=== PATIENT | male | born 1995 | race Caucasian/White ===

== ENCOUNTER 2017-03-29 11:45 | Inpatient (IN) | payer BC ==
[~2017-03-29] VITALS: Ht 182.8 cm; Wt 56.9 kg
[2017-03-29] VITALS (8 sets, daily range): BP systolic 113–139; BP diastolic 63–83
--- NOTE | ~2017-03-29 | CON ---
[place], [place] REPORT OF CONSULTATION [id number] UNIT #: [id number] ROOM: [facility] DOCTOR: GUANAKO CONNORS MD BIRTHDATE: [birth year] DOS: GASTROENDOSCOPIC REPORT HISTORY OF PRESENT ILLNESS: A 89-year-old patient who presented with chief complaint of exhaustion. The patient was directed to come to the Emergency Room for blood work. He was found to have H and H of 7 and 25, microcytic indices blood in the stool. The patient is known and recently diagnosed with ulcerative colitis. He was a couple of months on sulfasalazine 500 mg 2 tablets b.i.d. and folic acid. He was responding to the medication, apparently he had breakthrough and non-responsiveness and his colitis was re-assessed and active colitis was noticed. The patient was started recently on Lialda over the past 10 days. He has been responding and his bowel movement has reduced to 3 to 4 per day. His cramp has improved. However during this course of admission, he was given a unit of packed cell admitted and with a second unit, it was thought that he has allergic reaction to the second unit; therefore, the second unit was not transfused. H and H after the first unit therefore became 7.3 and 25, nearly the same as when he was admitted. He had a panel of blood work done including lactic acid 0.8. CT scan of the abdomen and pelvis shows some nodularity of the lower lungs and also the colitis pattern after ulcerative colitis with inflammatory response. His comprehensive metabolic panel and GFR greater than 60. Electrolytes balanced. Calcium is 8.1 expected, most likely secondary to low albumin. Liver function tests otherwise within normal limit as this CBC this morning, white blood cell is 10 and his neutrophils are 85.6. PAST MEDICAL HISTORY: Recently diagnosed ulcerative colitis. 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 SOCIAL HISTORY: Nonsmoker, nonalcohol consumer. FAMILY HISTORY: An uncle, the brother of his mother, with Crohn's disease for past 26 years. ALLERGIES: ROBITUSSIN. HOME MEDICATIONS: He has been tried on ferrous sulfate and folic acid, which helped him for 2 months in his ulcerative colitis, subsequently 10 days ago, switched to Lialda 1.2 g b.i.d. Multivitamins and ferrous sulfate. REVIEW OF SYSTEMS: HEENT: Denies double vision, blurred vision. RESPIRATORY: Denies acute shortness of breath, no cough. CARDIOVASCULAR: Denies chest pain. DIGESTIVE SYSTEM: Ulcerative colitis, diarrhea, cramps. PHYSICAL EXAMINATION: VITAL SIGNS: Stable. HEENT: Head normocephalic, nontraumatic. Mouth and buccal mucosa benign. [place], [place] REPORT OF CONSULTATION NAME: SUNNY HARTLEY UNIT #: [id number] ROOM: [facility] DOCTOR: WAYLON ARGUETA,GUANAKO BIRTHDATE: [birth year] NECK: Supple, no thyromegaly, no cervical lymphadenopathy. CHEST: Symmetric anatomy, equal expansion. No wheeze. ABDOMEN: Soft. No hepato-organomegaly. Bowel sounds present. Nonspecific tender. EXTREMITIES: No cyanosis. No pedal edema. NEUROLOGIC: Alert, oriented to time, place and person. IMPRESSION: Severe anemia, exhaustion secondary to above, history of ulcerative colitis with some improvement on Lialda responds. Recently found CT scan findings of suspected lower lung nodules which is going to be addressed with CTA of the chest. Antibiotic, Zosyn has been on board, which is going to be supplemented with Flagyl 250 mg p.o. q.i.d. His iron supplementation is going to continue. 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 He has been on a trial of Medrol dose, but apparently I will continue with two doses of Medrol while he is inpatient to see if I can enhance symptomatic improvement of some of his colitis reaction with Medrol 100 mg b.i.d. while in hospital and suspected sepsis and protein malnutrition are being addressed. Hydration through IV fluid support is going to be given. Transfusion as necessary today on his second unit. Transfusion tomorrow H and H, I trust that we may need another unit as we go along and clinical reassessment. GUANAKO CONNORS MD CM:CONSTR:REPORT OF CONSULTATION [id number] 03/31/17 4600 interface
[~2017-03-29 11:45] MED LIST: AMOXIL250 M1 PO; BENADRYL12.5 MG/5 PO
[2017-03-29 12:28] LABS: BASO % 0.3 % (0.0-1.0); EOS # 0.8 10*3/uL (0.0-0.4); EOS % 7.1 % (1.0-4.0); HEMATOCRIT 25.9 % (42.0-52.0); HEMOGLOBIN 7.3 g/dl (14.0-18.0); LYMPH # 1.3 10*3/uL (1.3-4.4); MEAN CELL VOLUME 70.6 fl (80.0-94.0); MEAN CORPUSCULAR HGB 19.9 pg (27.0-31.0); MEAN CORPUSCULAR HGB CONC 28.2 g/dl (33.0-37.0); MEAN PLATELET VOLUME 8.5 fl (9.6-12.3); MONO # 1.5 10*3/uL (0.1-1.0); MONO % 12.4 % (3.0-9.0); NEUT # 8.2 10*3/uL (2.3-7.9); NEUT % 68.7 % (47.0-73.0); PLATELET COUNT AUTOMATED 498 10*3/uL (130-400); RED BLOOD COUNT 3.67 10*6/uL (4.50-5.90); RED CELL DISTRI WIDTH 25.2 % (0-14.5); WHITE BLOOD COUNT 11.9 10*3/uL (4.8-10.8)
[2017-03-29] MEDS ORDERED: NATURE'S BLEND F1 MG PO (16:05)
[2017-03-29] MEDS ORDERED: LIALDA1.2 GM PO (16:13)
[2017-03-29] MEDS ORDERED: FERROUS SULFAT325 MG PO (16:13)
[2017-03-29] MEDS ORDERED: CENTRUM MEN'S1 EACH PO (16:16)
--- NOTE | 2017-03-29 20:00 | NUR ---
2ND UNIT OF BLOOD STARTED TEMP WENT TO 101.1. 2013 TRANSFUSION STOPPED. LAB NOTIFIED, DR. CONNORS NOTIFIED.
--- NOTE | 2017-03-29 21:01 | NUR ---
TINT LAYER IS AWARE AND LAB AND RN COORDINATED PER POLICY ALL THAT NEEDED TO BE DONE FOR REACTION. FAMILY AT BEDSIDE AND COOPERATIVE PATIENT IS TO BE ADMITTED TO DR. GAINES SERVICES.
--- NOTE | 2017-03-29 21:03 | NUR ---
A 21, admitted to , under the services of LU Velázquez DO with a diagnosis of ANEMIA, BLOOD REACTION. Chief complaint is ANEMIA. Patient arrived via ambulatory from [place]. Monitor applied. Initial assessment completed. Vital signs taken and recorded. LU VELÁZQUEZ DO notified of admission to the unit. Orders received. See assessment for past medical history, medications and allergies. Patient and/or family oriented to unit. [facility] visitation policy reviewed. Clothing/patient valuable form completed. ROSE OROPEZA
--- NOTE | 2017-03-29 21:30 | NUR ---
RECHECKED PATIENT TEMP UPON ASSESSMENT PATIENT ORAL TEMP WAS 103.5 CALLED DOCTOR DINA AND MADE HIM AWARE NEW ORDERS WERE RECIEVED.
[2017-03-29 21:50] LABS: URINE BLOOD,POST TRANSFUSION NEGATIVE (NEGATIVE)
[2017-03-29 21:56] LABS: URINE RBC,POST TRANSFUSION 0-2 rbc/hpf (0-2)
--- NOTE | 2017-03-29 22:05 | NUR ---
PATIENT GIVEN TYLENOL FOR FEVER WILL CONT TO MONITOR. PATIENT WAS ALSO GIVEN POPSICLE. STATED THAT HE IS TO AFRAID TO EAT ANYHTING DOESNT WANT TO GO TO THE BATHROOM ANYMORE.
[2017-03-30] VITALS (8 sets, daily range): BP systolic 103–134; BP diastolic 54–90
--- NOTE | 2017-03-30 04:08 | NUR ---
CALLED PATRICE ARROYO ABOUT PATIENTS TEMP OF 101.2 INFORMED HIM THAT I AM ADMINISTERING HIM TYLENOL BUT THAT I WAS JUST KEEPING HIM UPDATED.
[2017-03-30 06:19] LABS: HEMATOCRIT 25.1 % (42.0-52.0); HEMOGLOBIN 7.2 g/dl (14.0-18.0); MEAN CELL VOLUME 71.7 fl (80.0-94.0); MEAN CORPUSCULAR HGB 20.6 pg (27.0-31.0); MEAN CORPUSCULAR HGB CONC 28.7 g/dl (33.0-37.0); MEAN PLATELET VOLUME 8.5 fl (9.6-12.3); PLATELET COUNT AUTOMATED 395 10*3/uL (130-400); RED CELL DISTRI WIDTH 25.5 % (0-14.5); WHITE BLOOD COUNT 11.5 10*3/uL (4.8-10.8)
[2017-03-30 06:49] LABS: ALKALINE PHOSPHATASE 80 U/L (45-117); BUN 5 mg/dl (7-24); CHLORIDE 103 mmol/L (98-107); CREATININE 0.82 mg/dL (0.70-1.30); PHOSPHOROUS 3.3 mg/dL (2.5-4.9); POTASSIUM 3.9 mmol/L (3.5-5.1); SGOT/AST 13 IU/L (3-35); SGPT/ALT 27 U/L (12-78); SODIUM 137 mmol/L (136-145); TOTAL PROTEIN 5.3 gm/dL (6.4-8.2)
[2017-03-30 06:57] LABS: INTERNATIONAL NORM RATIO 1.2 (2.0-3.5)
[2017-03-30 06:58] LABS: MICROCYTOSIS SLIGHT; TOTAL CELLS COUNTED 100 #CELLS
[2017-03-30 06:59] LABS: PLATELET SUFFICIENCY NORMAL (NORMAL); POLYCHROMASIA SLIGHT; TOXIC GRANULATION SLIGHT
--- NOTE | 2017-03-30 07:30 | NUR ---
PT REPORTED TO HAVE A YELLOW LIQUID EMESIS WHEN HAVING BM THIS AM. PT DENIES NAUSEA AT PRESENT TIME. WILL INFORM DOCTOR.
--- NOTE | 2017-03-30 09:15 | NUR ---
DR Randi ARRINGTON UPDATED ON PT'S CONDITION.
--- NOTE | 2017-03-30 09:33 | NUR ---
DR CONNORS UNABLE TO COME TO THE PHONE WHEN I CALLED TO UPDATE HIM ON PT'S CONDITION. MESSAGE LEFT FOR HIM TO CALL.
--- NOTE | 2017-03-30 09:46 | NUR ---
PT TRANSFERED TO [facility]. PT REPORT GIVEN TO RECEIVING NURSE.
--- NOTE | 2017-03-30 09:50 | NUR ---
Stable transfer recieved from 416, on physician order. Ambulatory into room, Father present on arrival. to bathroom for loose bm per pt. VS stable on arrival.
--- NOTE | 2017-03-30 10:31 | NUR ---
Dr. Ko in and spoke w/ pt. and family at length re: plan of care.
--- NOTE | 2017-03-30 12:00 | NUR ---
To radiology for CT. Mother in room.
--- NOTE | 2017-03-30 12:32 | NUR ---
PT HAS RETURNED FROM CT SCAN. PREMEDICATED PER ORDER WITH PO TYLENOL 975, IV BENADRYL 6.25 AND SOLUMEDROL 80MG IV.
--- NOTE | 2017-03-30 12:59 | NUR ---
Temp 100.[address] Lay notified. Verbal order recieved. Do not give blood at this time. Pt. and family aware.
--- NOTE | 2017-03-30 13:33 | NUR ---
Family out to desk state pt. is soaked in sweat. temp check reveals 99.1 .
[2017-03-30 14:08] LABS: BASO % 0.3 % (0.0-1.0); EOS # 0.3 10*3/uL (0.0-0.4); HEMOGLOBIN 7.3 g/dl (14.0-18.0); LYMPH # 0.5 10*3/uL (1.3-4.4); LYMPH % 5.1 % (27.0-41.0); MEAN CELL VOLUME 71.4 fl (80.0-94.0); MEAN CORPUSCULAR HGB 20.9 pg (27.0-31.0); MEAN CORPUSCULAR HGB CONC 29.2 g/dl (33.0-37.0); MEAN PLATELET VOLUME 8.3 fl (9.6-12.3); MONO # 0.6 10*3/uL (0.1-1.0); MONO % 5.6 % (3.0-9.0); NEUT # 8.5 10*3/uL (2.3-7.9); NEUT % 85.6 % (47.0-73.0); PLATELET COUNT AUTOMATED 374 10*3/uL (130-400); RED CELL DISTRI WIDTH 25.6 % (0-14.5)
--- NOTE | 2017-03-30 14:30 | NUR ---
Dr. Lay was updated on temp and CT result. New orders recieved. OK to transfuse PRBC's .
--- NOTE | 2017-03-30 16:30 | NUR ---
Dr. Carreon in and spoke at length with pt. and parents re: plan of care. and CT results including qustionable lung nodules.
--- NOTE | 2017-03-30 17:37 | NUR ---
Transfusion complete , IVF resumed. CTA complete. Lialdal dose given from home med. Liquid BM of dark green.
[2017-03-30 17:56] LABS: BASO % 0.1 % (0.0-1.0); EOS # 0.1 10*3/uL (0.0-0.4); EOS % 0.6 % (1.0-4.0); HEMATOCRIT 30.3 % (42.0-52.0); LYMPH # 0.4 10*3/uL (1.3-4.4); LYMPH % 4.8 % (27.0-41.0); MEAN CORPUSCULAR HGB 22.3 pg (27.0-31.0); MEAN CORPUSCULAR HGB CONC 29.7 g/dl (33.0-37.0); MEAN PLATELET VOLUME 8.4 fl (9.6-12.3); MONO # 0.1 10*3/uL (0.1-1.0); MONO % 1.5 % (3.0-9.0); NEUT # 8.1 10*3/uL (2.3-7.9); NEUT % 92.5 % (47.0-73.0); PLATELET COUNT AUTOMATED 352 10*3/uL (130-400); RED BLOOD COUNT 4.04 10*6/uL (4.50-5.90); RED CELL DISTRI WIDTH 26.1 % (0-14.5); WHITE BLOOD COUNT 8.8 10*3/uL (4.8-10.8)
[2017-03-30 21:59] LABS: HEMATOCRIT 29.9 % (42.0-52.0); MEAN CELL VOLUME 73.8 fl (80.0-94.0); MEAN CORPUSCULAR HGB 22.2 pg (27.0-31.0); MEAN CORPUSCULAR HGB CONC 30.1 g/dl (33.0-37.0); MEAN PLATELET VOLUME 8.6 fl (9.6-12.3); PLATELET COUNT AUTOMATED 356 10*3/uL (130-400); RED BLOOD COUNT 4.05 10*6/uL (4.50-5.90); WHITE BLOOD COUNT 7.6 10*3/uL (4.8-10.8)
[2017-03-30 22:20] LABS: TOTAL CELLS COUNTED 100 #CELLS
[2017-03-30 22:26] LABS: POLYCHROMASIA SLIGHT
[2017-03-30 22:28] LABS: MICROCYTOSIS SLIGHT
[2017-03-30 22:32] LABS: BURR CELLS FEW
[2017-03-30 22:34] LABS: PLATELET SUFFICIENCY NORMAL (NORMAL)
[2017-03-31] VITALS: BP 94/48
[2017-03-31 02:25] LABS: BASO % 0.1 % (0.0-1.0); HEMATOCRIT 28.7 % (42.0-52.0); HEMOGLOBIN 8.6 g/dl (14.0-18.0); LYMPH # 0.5 10*3/uL (1.3-4.4); LYMPH % 7.7 % (27.0-41.0); MEAN CORPUSCULAR HGB 22.2 pg (27.0-31.0); MEAN PLATELET VOLUME 8.6 fl (9.6-12.3); MONO # 0.1 10*3/uL (0.1-1.0); MONO % 1.9 % (3.0-9.0); NEUT # 6.3 10*3/uL (2.3-7.9); NEUT % 89.4 % (47.0-73.0); PLATELET COUNT AUTOMATED 364 10*3/uL (130-400); RED BLOOD COUNT 3.88 10*6/uL (4.50-5.90)
[2017-03-31 04:00] VITALS: BP 115/66
[2017-03-31 06:19] LABS: BASO % 0.1 % (0.0-1.0); HEMATOCRIT 29.7 % (42.0-52.0); HEMOGLOBIN 8.7 g/dl (14.0-18.0); LYMPH # 0.6 10*3/uL (1.3-4.4); LYMPH % 7.5 % (27.0-41.0); MEAN CELL VOLUME 75.8 fl (80.0-94.0); MEAN CORPUSCULAR HGB 22.2 pg (27.0-31.0); MEAN CORPUSCULAR HGB CONC 29.3 g/dl (33.0-37.0); MEAN PLATELET VOLUME 8.8 fl (9.6-12.3); MONO # 0.3 10*3/uL (0.1-1.0); MONO % 3.3 % (3.0-9.0); NEUT # 7.6 10*3/uL (2.3-7.9); NEUT % 88.5 % (47.0-73.0); PLATELET COUNT AUTOMATED 387 10*3/uL (130-400); RED BLOOD COUNT 3.92 10*6/uL (4.50-5.90); RED CELL DISTRI WIDTH 26.3 % (0-14.5); WHITE BLOOD COUNT 8.6 10*3/uL (4.8-10.8)
[2017-03-31 06:47] LABS: ALBUMIN 1.9 gm/dl (3.1-4.5); ALKALINE PHOSPHATASE 85 U/L (45-117); BUN 9 mg/dl (7-24); CHLORIDE 103 mmol/L (98-107); CREATININE 0.76 mg/dL (0.70-1.30); MAGNESIUM 2.2 mg/dL (1.5-2.1); PHOSPHOROUS 4.5 mg/dL (2.5-4.9); POTASSIUM 4.5 mmol/L (3.5-5.1); SGOT/AST 6 IU/L (3-35); SGPT/ALT 22 U/L (12-78); SODIUM 138 mmol/L (136-145); TOTAL PROTEIN 5.7 gm/dL (6.4-8.2)
[2017-03-31 08:00] VITALS: BP 116/68
--- NOTE | 2017-03-31 08:00 | NUR ---
RESTING IN BED. NO VOICED COMPLAINTS. VITALS STABLE. NO EDEMA. TRESSA HOSE INTACT TO BILATERAL LOWER LEGS. PULSE OX 97% ON ROOM AIR
[2017-03-31 11:14] LABS: BASO % 0.1 % (0.0-1.0); HEMATOCRIT 29.4 % (42.0-52.0); HEMOGLOBIN 8.5 g/dl (14.0-18.0); LYMPH # 0.7 10*3/uL (1.3-4.4); LYMPH % 4.9 % (27.0-41.0); MEAN CORPUSCULAR HGB CONC 28.9 g/dl (33.0-37.0); MEAN PLATELET VOLUME 8.9 fl (9.6-12.3); MONO # 0.8 10*3/uL (0.1-1.0); MONO % 5.8 % (3.0-9.0); NEUT # 11.6 10*3/uL (2.3-7.9); NEUT % 88.4 % (47.0-73.0); PLATELET COUNT AUTOMATED 400 10*3/uL (130-400); RED BLOOD COUNT 3.87 10*6/uL (4.50-5.90); RED CELL DISTRI WIDTH 26.3 % (0-14.5); WHITE BLOOD COUNT 13.2 10*3/uL (4.8-10.8)
[2017-03-31 12:00] VITALS: BP 130/73
[2017-03-31] MEDS ORDERED: ZOSYN 3.373.375 GM/5 IV (12:13)
[2017-03-31] MEDS ORDERED: PROTONIX40 M1 IV (12:13)
[2017-03-31] MEDS ORDERED: METRONIDAZOLE250 M1 PO (12:13)
[2017-03-31] MEDS ORDERED: Vitamin D PO (12:13)
--- NOTE | 2017-03-31 14:00 | NUR ---
DISCHARGED TO [facility] VIA [facility].
== END 2017-03-31 14:00 | disposition short-term general hospital (02) | DRG 811 ==
LOC: TRNFUSION 11:45 → LAB 11:45 → 4E 20:35 → ICCU 03-30 09:30
PROVIDERS: Hospitalist; Internal Medicine Gastroenterology; ADMIT Internal Medicine
DX: T80.89XA Other complications following infusion, transfusion and therapeutic injection, initial encounter (principal); A41.9 Sepsis, unspecified organism; E43 Unspecified severe protein-calorie malnutrition; K92.1 Melena; K51.90 Ulcerative colitis, unspecified, without complications; Z68.1 Body mass index [BMI] 19.9 or less, adult; D50.0 Iron deficiency anemia secondary to blood loss (chronic); D47.3 Essential (hemorrhagic) thrombocythemia; E55.9 Vitamin D deficiency, unspecified; K52.9 Noninfective gastroenteritis and colitis, unspecified; R61 Generalized hyperhidrosis; R91.8 Other nonspecific abnormal finding of lung field; Y84.8 Other medical procedures as the cause of abnormal reaction of the patient, or of later complication, without mention of misadventure at the time of the procedure; Y92.89 Other specified places as the place of occurrence of the external cause

== ENCOUNTER → 2017-11-14 | Outpatient (CLI) | payer BC ==
[~2017-11-14] MED LIST changes: +CENTRUM MEN'S1 EACH PO; +FERROUS SULFAT325 MG PO; +LIALDA1.2 GM PO; +METRONIDAZOLE250 M1 PO; +NATURE'S BLEND F1 MG PO; +PROTONIX40 M1 IV; +Vitamin D PO; +ZOSYN 3.373.375 GM/5 IV
== END | disposition home or self-care (01) ==
LOC: LAB 14:12
DX: K51.019 Ulcerative (chronic) pancolitis with unspecified complications (principal); K62.5 Hemorrhage of anus and rectum; R19.7 Diarrhea, unspecified

== ENCOUNTER 2020-10-20 15:46 | Emergency (ER) | payer BC ==
[~2020-10-20] VITALS: Ht 180.3 cm; Wt 59.0 kg
[~2020-10-20 15:46] MED LIST changes: -GOOD NEIGHBOR L10 MG PO; -PREDNISONE10 MG PO
[2020-10-20 16:15] LABS: MEAN CELL VOLUME 59.5 fl (80.0-94.0); MEAN CORPUSCULAR HGB 13.7 pg (27.0-31.0); MEAN PLATELET VOLUME 7.9 fl (9.6-12.3); PLATELET COUNT AUTOMATED 539 10*3/uL (130-400); RED BLOOD COUNT 3.36 10*6/uL (4.50-5.90); WHITE BLOOD COUNT 4.6 10*3/uL (4.8-10.8)
[2020-10-20 16:29] LABS: ALBUMIN 2.9 gm/dl (3.1-4.5); ALKALINE PHOSPHATASE 90 U/L (45-117); BUN 10 mg/dl (7-24); CHLORIDE 104 mmol/L (98-107); POTASSIUM 3.9 mmol/L (3.5-5.1); SGOT/AST 4 IU/L (3-35); SGPT/ALT 14 U/L (12-78); SODIUM 139 mmol/L (136-145); TOTAL PROTEIN 7.2 gm/dL (6.4-8.2)
[2020-10-20 16:38] LABS: BASOPHILS 2 % (0-1); TOTAL CELLS COUNTED 100 #CELLS
[2020-10-20 16:39] LABS: OVALOCYTES FEW; PLATELET SUFFICIENCY HIGH (NORMAL)
[2020-10-20 17:05] VITALS: BP 104/61
[2020-10-20 17:36] VITALS: BP 105/62
[2020-10-20 20:01] VITALS: BP 108/66
[2020-10-20 20:16] VITALS: BP 110/67
[2020-10-20 20:31] VITALS: BP 114/65
[2020-10-20 20:46] VITALS: BP 110/65
== END 2020-10-20 23:08 | disposition left against medical advice (07) ==
LOC: ED 15:46
PROVIDERS: Physician Assistant
DX: D64.9 Anemia, unspecified (principal); Z53.29 Procedure and treatment not carried out because of patient's decision for other reasons; Z88.8 Allergy status to other drugs, medicaments and biological substances; Z79.899 Other long term (current) drug therapy; Z98.890 Other specified postprocedural states

== ENCOUNTER → 2020-10-20 | Outpatient (CLI) | payer BC ==
[~2020-10-20] MED LIST changes: +GOOD NEIGHBOR L10 MG PO; +PREDNISONE10 MG PO
[2020-10-20 13:32] LABS: BILIRUBIN Negative (Negative); BLOOD Negative (Negative); CLARITY Clear (Clear); COLOR Yellow (Yellow); GLUCOSE Negative (Negative); KETONE Trace (Negative); LEUKO ESTERASE Negative (Negative); NITRITE Negative (Negative); PH 6.5 (4.5-8.0); UROBILINOGEN 0.2 E.U./dl (0.0-1.0)
[2020-10-20 13:33] LABS: MEAN CELL VOLUME 60.9 fl (80.0-94.0); MEAN CORPUSCULAR HGB 13.5 pg (27.0-31.0); MEAN CORPUSCULAR HGB CONC 22.2 g/dl (33.0-37.0); MEAN PLATELET VOLUME 8.4 fl (9.6-12.3); PLATELET COUNT AUTOMATED 522 10*3/uL (130-400); RED CELL DISTRI WIDTH 21.1 % (0-14.5); RETICULOCYTE % 1.29 % (0.50-2.50); WHITE BLOOD COUNT 3.8 10*3/uL (4.8-10.8)
[2020-10-20 13:42] LABS: HEMATOCRIT 20.7 % (42.0-52.0)
[2020-10-20 13:48] LABS: BACTERIA 1+; MUCOUS 1+
[2020-10-20 13:57] LABS: ATYPICAL LYMPHS 1 % (0-0); BASOPHILS 1 % (0-1); TOTAL CELLS COUNTED 100 #CELLS
[2020-10-20 13:58] LABS: MICROCYTOSIS MARKED; PLATELET SUFFICIENCY HIGH (NORMAL); POLYCHROMASIA SLIGHT; SCHISTOCYTES FEW
[2020-10-20 14:08] LABS: ALBUMIN 2.9 gm/dl (3.1-4.5); ALKALINE PHOSPHATASE 93 U/L (45-117); BUN 8 mg/dl (7-24); CHLORIDE 108 mmol/L (98-107); CHOLESTEROL 135 mg/dL (<200); CREATININE 0.83 mg/dL (0.70-1.30); GAMMA GLUTAMYL TRANSPEPTIDASE 18 U/L (15-85); HDL CHOLESTEROL 57 mg/dl (40-60); IRON 6 ug/dL (65-175); LDL CHOLESTEROL 63 mg/dL (9-159); SGOT/AST 3 IU/L (3-35); SGPT/ALT 15 U/L (12-78); SODIUM 139 mmol/L (136-145); TOTAL IRON BINDING CAPACITY 383 ug/dl (250-450); TOTAL PROTEIN 7.2 gm/dL (6.4-8.2); TRIGLYCERIDES 77 mg/dl (<150); VLDL CHOLESTEROL 15 mg/dL (6-40)
[2020-10-20 14:15] LABS: FERRITIN 0.5 ng/mL (22.0-322.0)
== END | disposition home or self-care (01) ==
LOC: LAB 13:06
PROVIDERS: ATTEND Family Medicine
DX: R79.89 Other specified abnormal findings of blood chemistry (principal); R53.83 Other fatigue; E78.5 Hyperlipidemia, unspecified; E55.9 Vitamin D deficiency, unspecified

== ENCOUNTER 2020-10-26 12:02 | Observation (INO) | payer BC ==
[2020-10-26] VITALS (9 sets, daily range): BP systolic 100–122; BP diastolic 51–76
[~2020-10-26] VITALS: Ht 180.3 cm; Wt 56.4 kg
[~2020-10-26 12:02] MED LIST changes: -GOOD NEIGHBOR L10 MG PO; -PREDNISONE10 MG PO
[2020-10-26 13:36] LABS: ALBUMIN 3.1 gm/dl (3.1-4.5); ALKALINE PHOSPHATASE 96 U/L (45-117); BUN 15 mg/dl (7-24); CHLORIDE 105 mmol/L (98-107); CREATININE 0.89 mg/dL (0.70-1.30); POTASSIUM 4.4 mmol/L (3.5-5.1); SGOT/AST 8 IU/L (3-35); SGPT/ALT 18 U/L (12-78); SODIUM 138 mmol/L (136-145); TOTAL PROTEIN 7.3 gm/dL (6.4-8.2)
[2020-10-26 13:37] LABS: TROPONIN I < 0.015 ng/ml (<0.045)
[2020-10-26 14:14] LABS: BASO # 0.1 10*3/uL (0.0-0.1); BASO % 1.1 % (0.0-1.0); EOS # 0.3 10*3/uL (0.0-0.4); EOS % 6.3 % (1.0-4.0); HEMATOCRIT 28.6 % (42.0-52.0); LYMPH # 1.1 10*3/uL (1.3-4.4); LYMPH % 19.9 % (27.0-41.0); MEAN CELL VOLUME 67.1 fl (80.0-94.0); MEAN CORPUSCULAR HGB 17.6 pg (27.0-31.0); MEAN CORPUSCULAR HGB CONC 26.2 g/dl (33.0-37.0); MEAN PLATELET VOLUME 8.2 fl (9.6-12.3); MONO # 0.7 10*3/uL (0.1-1.0); MONO % 13.4 % (3.0-9.0); NEUT # 3.2 10*3/uL (2.3-7.9); NEUT % 58.9 % (47.0-73.0); PLATELET COUNT AUTOMATED 556 10*3/uL (130-400); RED BLOOD COUNT 4.26 10*6/uL (4.50-5.90); RED CELL DISTRI WIDTH 30.2 % (0-14.5); WHITE BLOOD COUNT 5.4 10*3/uL (4.8-10.8)
[2020-10-26] MEDS ORDERED: GOOD NEIGHBOR L10 MG PO (17:49)
[2020-10-26 19:11] LABS: BILIRUBIN Negative (Negative); BLOOD Negative (Negative); CLARITY Clear (Clear); COLOR Yellow (Yellow); GLUCOSE 1+ (Negative); KETONE Negative (Negative); LEUKO ESTERASE Negative (Negative); NITRITE Negative (Negative); SPECIFIC GRAVITY >= 1.030 (1.001-1.030); UROBILINOGEN 0.2 E.U./dl (0.0-1.0)
[2020-10-26 19:27] LABS: RBC 0-2 rbc/hpf (0-2); WBC 0-2 wbc/hpf (0-5)
[2020-10-26 20:21] LABS: BASO % 0.7 % (0.0-1.0); EOS # 0.3 10*3/uL (0.0-0.4); EOS % 5.9 % (1.0-4.0); HEMATOCRIT 29.2 % (42.0-52.0); LYMPH # 0.8 10*3/uL (1.3-4.4); LYMPH % 14.1 % (27.0-41.0); MEAN CELL VOLUME 67.9 fl (80.0-94.0); MEAN CORPUSCULAR HGB 18.8 pg (27.0-31.0); MEAN CORPUSCULAR HGB CONC 27.7 g/dl (33.0-37.0); MONO # 0.7 10*3/uL (0.1-1.0); MONO % 12.2 % (3.0-9.0); NEUT # 3.8 10*3/uL (2.3-7.9); NEUT % 66.9 % (47.0-73.0); PLATELET COUNT AUTOMATED 479 10*3/uL (130-400); RED CELL DISTRI WIDTH 29.7 % (0-14.5); WHITE BLOOD COUNT 5.7 10*3/uL (4.8-10.8)
[2020-10-27] VITALS: BP 104/63
[2020-10-27 06:15] LABS: HEMATOCRIT 29.9 % (42.0-52.0); MEAN CELL VOLUME 68.6 fl (80.0-94.0); MEAN CORPUSCULAR HGB 18.3 pg (27.0-31.0); MEAN CORPUSCULAR HGB CONC 26.8 g/dl (33.0-37.0); MEAN PLATELET VOLUME 8.4 fl (9.6-12.3); PLATELET COUNT AUTOMATED 523 10*3/uL (130-400); RED BLOOD COUNT 4.36 10*6/uL (4.50-5.90); RED CELL DISTRI WIDTH 29.5 % (0-14.5); WHITE BLOOD COUNT 5.8 10*3/uL (4.8-10.8)
[2020-10-27 06:29] LABS: ACT PARTIAL THROMBO TIME 25.4 SECONDS (20.0-32.1)
[2020-10-27 06:35] LABS: BUN 13 mg/dl (7-24); CHLORIDE 104 mmol/L (98-107); CREATININE 0.74 mg/dL (0.70-1.30); POTASSIUM 4.4 mmol/L (3.5-5.1); SGOT/AST 7 IU/L (3-35); SGPT/ALT 16 U/L (12-78); SODIUM 137 mmol/L (136-145)
[2020-10-27 06:41] LABS: ALKALINE PHOSPHATASE 96 U/L (45-117); CHOLESTEROL 151 mg/dL (<200); FREE T4 0.92 ng/dl (0.76-1.46); HDL CHOLESTEROL 61 mg/dl (40-60); LDL CHOLESTEROL 84 mg/dL (9-159); THYROID STIM HORMONE (HS) 0.448 uIU/ml (0.358-4.75); TOTAL PROTEIN 7.2 gm/dL (6.4-8.2); TRIGLYCERIDES 30 mg/dl (<150); VLDL CHOLESTEROL 6 mg/dL (6-40)
[2020-10-27 07:05] LABS: ATYPICAL LYMPHS 1 % (0-0); TOTAL CELLS COUNTED 100 #CELLS
[2020-10-27 07:06] LABS: MICROCYTOSIS SLIGHT; OVALOCYTES FEW; PLATELET SUFFICIENCY HIGH (NORMAL); POLYCHROMASIA SLIGHT; SCHISTOCYTES FEW
[2020-10-27 08:00] VITALS: BP 113/59
[2020-10-27 12:00] VITALS: BP 120/68
[2020-10-27 14:12] LABS: BASO % 0.2 % (0.0-1.0); HEMATOCRIT 29.8 % (42.0-52.0); LYMPH # 0.5 10*3/uL (1.3-4.4); LYMPH % 7.8 % (27.0-41.0); MEAN CELL VOLUME 67.1 fl (80.0-94.0); MEAN CORPUSCULAR HGB 18.7 pg (27.0-31.0); MEAN CORPUSCULAR HGB CONC 27.9 g/dl (33.0-37.0); MEAN PLATELET VOLUME 8.1 fl (9.6-12.3); MONO # 0.4 10*3/uL (0.1-1.0); MONO % 5.8 % (3.0-9.0); NEUT # 5.5 10*3/uL (2.3-7.9); NEUT % 85.7 % (47.0-73.0); PLATELET COUNT AUTOMATED 528 10*3/uL (130-400); RED BLOOD COUNT 4.44 10*6/uL (4.50-5.90); RED CELL DISTRI WIDTH 29.3 % (0-14.5); WHITE BLOOD COUNT 6.4 10*3/uL (4.8-10.8)
[2020-10-27 16:00] VITALS: BP 100/47
[2020-10-27] MEDS ORDERED: PREDNISONE10 MG PO (16:20)
== END 2020-10-27 18:45 | disposition home or self-care (01) ==
LOC: ED 12:02 → 4E 16:06 → EDHOLD 16:06 → 4E 16:06
PROVIDERS: Nurse Practitioner; Social Worker Clinical; ADMIT Internal Medicine; ATTEND Internal Medicine
DX: K51.911 Ulcerative colitis, unspecified with rectal bleeding (principal); D47.3 Essential (hemorrhagic) thrombocythemia; D50.0 Iron deficiency anemia secondary to blood loss (chronic); D36.10 Benign neoplasm of peripheral nerves and autonomic nervous system, unspecified; F12.90 Cannabis use, unspecified, uncomplicated; R07.89 Other chest pain; K51.00 Ulcerative (chronic) pancolitis without complications; K92.1 Melena; R00.0 Tachycardia, unspecified; Z87.891 Personal history of nicotine dependence; Z98.890 Other specified postprocedural states

== ENCOUNTER → 2020-10-26 | Outpatient (CLI) | payer BC ==
[~2020-10-26] MED LIST changes: +GOOD NEIGHBOR L10 MG PO; +PREDNISONE10 MG PO
[2020-10-26 12:20] LABS: HEMATOCRIT 31.3 % (42.0-52.0); MEAN CELL VOLUME 66.7 fl (80.0-94.0); MEAN CORPUSCULAR HGB 17.5 pg (27.0-31.0); MEAN CORPUSCULAR HGB CONC 26.2 g/dl (33.0-37.0); MEAN PLATELET VOLUME 8.3 fl (9.6-12.3); PLATELET COUNT AUTOMATED 603 10*3/uL (130-400); RED BLOOD COUNT 4.69 10*6/uL (4.50-5.90); RED CELL DISTRI WIDTH 30.2 % (0-14.5); WHITE BLOOD COUNT 6.5 10*3/uL (4.8-10.8)
[2020-10-26 12:44] LABS: RETICULOCYTE % 0.27 % (0.50-2.50)
[2020-10-26 12:48] LABS: ATYPICAL LYMPHS 1 % (0-0); BASOPHILS 1 % (0-1); MICROCYTOSIS MODERATE; OVALOCYTES FEW; POLYCHROMASIA SLIGHT; SCHISTOCYTES FEW; TOTAL CELLS COUNTED 100 #CELLS
[2020-10-26 12:49] LABS: PLATELET SUFFICIENCY HIGH (NORMAL); STOMATOCYTE FEW; TARGET CELLS FEW
[2020-10-26 12:56] LABS: IRON 13 ug/dL (65-175); TOTAL IRON BINDING CAPACITY 428 ug/dl (250-450)
== END | disposition home or self-care (01) ==
LOC: LAB 11:37
PROVIDERS: ATTEND Family Medicine
DX: R53.83 Other fatigue (principal); R79.89 Other specified abnormal findings of blood chemistry

== ENCOUNTER 2021-05-18 13:13 | Emergency (ER) | payer BC ==
[~2021-05-18] VITALS: Ht 180.3 cm; Wt 59.0 kg
[2021-05-18 14:38] LABS: HEMATOCRIT 27.4 % (42.0-52.0); MEAN CELL VOLUME 62.4 fl (80.0-94.0); MEAN CORPUSCULAR HGB 14.8 pg (27.0-31.0); MEAN CORPUSCULAR HGB CONC 23.7 g/dl (33.0-37.0); MEAN PLATELET VOLUME 8.4 fl (9.6-12.3); PLATELET COUNT AUTOMATED 567 10*3/uL (130-400); RED BLOOD COUNT 4.39 10*6/uL (4.50-5.90); RED CELL DISTRI WIDTH 20.4 % (0-14.5); WHITE BLOOD COUNT 6.1 10*3/uL (4.8-10.8)
[2021-05-18 14:59] LABS: ALBUMIN 3.5 gm/dl (3.1-4.5); BUN 8 mg/dl (7-24); CHLORIDE 104 mmol/L (98-107); LIPASE 55 U/L (73-393); POTASSIUM 3.9 mmol/L (3.5-5.1); SGOT/AST 9 IU/L (3-35); SGPT/ALT 13 U/L (12-78); SODIUM 139 mmol/L (136-145)
[2021-05-18 15:00] LABS: ALKALINE PHOSPHATASE 100 U/L (45-117); CREATININE 0.93 mg/dL (0.70-1.30); TOTAL PROTEIN 7.8 gm/dL (6.4-8.2)
[2021-05-18 15:02] LABS: TOTAL CELLS COUNTED 100 #CELLS
[2021-05-18 15:05] LABS: MICROCYTOSIS MARKED; PLATELET SUFFICIENCY HIGH (NORMAL)
[2021-05-18 15:06] LABS: OVALOCYTES FEW
[2021-05-18 16:30] VITALS: BP 108/61
[2021-05-18 16:45] VITALS: BP 112/66
[2021-05-18] MEDS ORDERED: PREDNISONE10 MG PO (18:38)
[2021-05-18 19:12] VITALS: BP 104/71
[2021-05-18 19:24] VITALS: BP 104/71
== END 2021-05-18 20:07 | disposition home or self-care (01) ==
LOC: ED 13:13
PROVIDERS: Emergency Medicine
DX: D64.9 Anemia, unspecified (principal); K51.90 Ulcerative colitis, unspecified, without complications; Z88.8 Allergy status to other drugs, medicaments and biological substances; Z79.899 Other long term (current) drug therapy

== ENCOUNTER → 2021-05-18 | Outpatient (CLI) | payer BC ==
[~2021-05-18] MED LIST changes: +GOOD NEIGHBOR L10 MG PO; +PREDNISONE10 MG PO
[2021-05-18 12:54] LABS: HEMATOCRIT 26.8 % (42.0-52.0); MEAN CELL VOLUME 61.6 fl (80.0-94.0); MEAN CORPUSCULAR HGB 14.7 pg (27.0-31.0); MEAN CORPUSCULAR HGB CONC 23.9 g/dl (33.0-37.0); MEAN PLATELET VOLUME 8.5 fl (9.6-12.3); PLATELET COUNT AUTOMATED 563 10*3/uL (130-400); RED BLOOD COUNT 4.35 10*6/uL (4.50-5.90); RED CELL DISTRI WIDTH 20.6 % (0-14.5); RETICULOCYTE % 2.13 % (0.50-2.50); WHITE BLOOD COUNT 5.9 10*3/uL (4.8-10.8)
[2021-05-18 13:17] LABS: BASOPHILS 1 % (0-1); TOTAL CELLS COUNTED 100 #CELLS
[2021-05-18 13:18] LABS: MICROCYTOSIS MARKED; PLATELET SUFFICIENCY HIGH (NORMAL)
[2021-05-18 13:25] LABS: IRON 12 ug/dL (65-175); TOTAL IRON BINDING CAPACITY 415 ug/dl (250-450)
== END | disposition home or self-care (01) ==
LOC: LAB 12:36
PROVIDERS: ATTEND Family Medicine
DX: R53.83 Other fatigue (principal); R79.89 Other specified abnormal findings of blood chemistry

== ENCOUNTER 2021-11-16 15:38 | Emergency (ER) | payer BC ==
[~2021-11-16] VITALS: Ht 180.3 cm; Wt 59.0 kg
[2021-11-16 16:49] LABS: HEMATOCRIT 25.6 % (42.0-52.0); MEAN CELL VOLUME 60.2 fl (80.0-94.0); MEAN CORPUSCULAR HGB 14.8 pg (27.0-31.0); MEAN CORPUSCULAR HGB CONC 24.6 g/dl (33.0-37.0); MEAN PLATELET VOLUME 8.2 fl (9.6-12.3); PLATELET COUNT AUTOMATED 582 10*3/uL (130-400); RED BLOOD COUNT 4.25 10*6/uL (4.50-5.90); WHITE BLOOD COUNT 5.9 10*3/uL (4.8-10.8)
[2021-11-16 16:53] LABS: MANUAL DIFF REFLEX YES
[2021-11-16 17:01] LABS: ALKALINE PHOSPHATASE 94 U/L (45-117); BUN 11 mg/dl (7-24); CHLORIDE 106 mmol/L (98-107); CREATININE 0.81 mg/dL (0.70-1.30); POTASSIUM 3.7 mmol/L (3.5-5.1); SGOT/AST 7 IU/L (3-35); SGPT/ALT 13 U/L (12-78); SODIUM 138 mmol/L (136-145); TOTAL PROTEIN 7.6 gm/dL (6.4-8.2)
[2021-11-16 17:10] LABS: BASOPHILS 6 % (0-1); TOTAL CELLS COUNTED 100 #CELLS
[2021-11-16 17:11] LABS: MICROCYTOSIS MODERATE; OVALOCYTES FEW; PLATELET SUFFICIENCY HIGH (NORMAL); TARGET CELLS FEW
[2021-11-16 18:50] VITALS: BP 100/63
[2021-11-16 19:19] VITALS: BP 106/67
[2021-11-16 20:30] VITALS: BP 103/66
[2021-11-16 21:03] VITALS: BP 101/50
[2021-11-16 21:42] VITALS: BP 98/68
== END 2021-11-16 23:24 | disposition home or self-care (01) ==
LOC: ED 15:38
PROVIDERS: Physician Assistant
DX: D64.9 Anemia, unspecified (principal)

== ENCOUNTER → 2021-11-16 | Outpatient (CLI) | payer BC ==
[2021-11-16 13:23] LABS: HEMATOCRIT 25.4 % (42.0-52.0); MEAN CELL VOLUME 61.4 fl (80.0-94.0); MEAN CORPUSCULAR HGB 14.7 pg (27.0-31.0); MEAN PLATELET VOLUME 8.2 fl (9.6-12.3); PLATELET COUNT AUTOMATED 529 10*3/uL (130-400); RED BLOOD COUNT 4.14 10*6/uL (4.50-5.90); RED CELL DISTRI WIDTH 19.9 % (0-14.5); RETICULOCYTE % 1.58 % (0.50-2.50); WHITE BLOOD COUNT 5.7 10*3/uL (4.8-10.8)
[2021-11-16 13:26] LABS: BILIRUBIN Negative (Negative); BLOOD Negative (Negative); CLARITY Cloudy (Clear); COLOR Yellow (Yellow); GLUCOSE Negative (Negative); KETONE Trace (Negative); LEUKO ESTERASE Negative (Negative); NITRITE Negative (Negative); PH 5.5 (4.5-8.0); SPECIFIC GRAVITY 1.025 (1.001-1.030); UROBILINOGEN 0.2 E.U./dl (0.0-1.0)
[2021-11-16 13:27] LABS: MANUAL DIFF REFLEX YES
[2021-11-16 13:39] LABS: ALKALINE PHOSPHATASE 95 U/L (45-117); BUN 10 mg/dl (7-24); CHLORIDE 106 mmol/L (98-107); CHOLESTEROL 140 mg/dL (<200); CREATININE 0.79 mg/dL (0.70-1.30); GAMMA GLUTAMYL TRANSPEPTIDASE 16 U/L (15-85); IRON 10 ug/dL (65-175); LDL CHOLESTEROL 76 mg/dL (9-159); POTASSIUM 4.3 mmol/L (3.5-5.1); SGOT/AST 7 IU/L (3-35); SGPT/ALT 15 U/L (12-78); SODIUM 138 mmol/L (136-145); TOTAL IRON BINDING CAPACITY 340 ug/dl (250-450); TOTAL PROTEIN 7.4 gm/dL (6.4-8.2); TRIGLYCERIDES 71 mg/dl (<150)
[2021-11-16 13:44] LABS: THYROID STIM HORMONE (HS) 0.769 uIU/ml (0.358-4.75)
[2021-11-16 13:45] LABS: BACTERIA TRACE; EPITHELIAL CELLS 0-2; MUCOUS 3+
[2021-11-16 13:51] LABS: BASOPHILS 1 % (0-1); OVALOCYTES FEW; TARGET CELLS FEW; TOTAL CELLS COUNTED 100 #CELLS
[2021-11-16 13:52] LABS: MICROCYTOSIS MODERATE; POLYCHROMASIA SLIGHT; SCHISTOCYTES FEW
[2021-11-16 13:53] LABS: PLATELET SUFFICIENCY HIGH (NORMAL); TOXIC GRANULATION SLIGHT
[2021-11-16 14:06] LABS: FERRITIN 1.1 ng/mL (22.0-322.0); VITAMIN D, 25-HYDROXY 15.9 ng/mL (30-100)
== END | disposition home or self-care (01) ==
LOC: LAB 12:58
PROVIDERS: ATTEND Family Medicine
DX: E78.5 Hyperlipidemia, unspecified (principal); E55.9 Vitamin D deficiency, unspecified; R79.89 Other specified abnormal findings of blood chemistry; R53.83 Other fatigue; R74.8 Abnormal levels of other serum enzymes

== ENCOUNTER → 2022-01-04 | Outpatient (CLI) | payer BC ==
[2022-01-04 10:40] LABS: BILIRUBIN 1+ (Negative); BLOOD Negative (Negative); CLARITY Turbid (Clear); COLOR Dark Yellow (Yellow); GLUCOSE Negative (Negative); KETONE 1+ (Negative); LEUKO ESTERASE Trace (Negative); NITRITE Negative (Negative); PH 5.5 (4.5-8.0); SPECIFIC GRAVITY >= 1.030 (1.001-1.030)
[2022-01-04 10:49] LABS: HEMATOCRIT 32.1 % (42.0-52.0); MEAN CELL VOLUME 64.8 fl (80.0-94.0); MEAN CORPUSCULAR HGB 17.4 pg (27.0-31.0); MEAN CORPUSCULAR HGB CONC 26.8 g/dl (33.0-37.0); MEAN PLATELET VOLUME 7.9 fl (9.6-12.3); MUCOUS 2+; PLATELET COUNT AUTOMATED 644 10*3/uL (130-400); RBC 0-2 rbc/hpf (0-2); RED BLOOD COUNT 4.95 10*6/uL (4.50-5.90); RED CELL DISTRI WIDTH 22.8 % (0-14.5); RETICULOCYTE % 0.85 % (0.50-2.50); WHITE BLOOD COUNT 6.6 10*3/uL (4.8-10.8)
[2022-01-04 10:50] LABS: BACTERIA 3+
[2022-01-04 10:53] LABS: MANUAL DIFF REFLEX YES
[2022-01-04 10:57] LABS: ALKALINE PHOSPHATASE 95 U/L (45-117); BUN 8 mg/dl (7-24); CHLORIDE 107 mmol/L (98-107); CHOLESTEROL 156 mg/dL (<200); CREATININE 1.01 mg/dL (0.70-1.30); GAMMA GLUTAMYL TRANSPEPTIDASE 14 U/L (15-85); IRON 12 ug/dL (65-175); LDL CHOLESTEROL 82 mg/dL (9-159); POTASSIUM 4.1 mmol/L (3.5-5.1); SGOT/AST 4 IU/L (3-35); SGPT/ALT 13 U/L (12-78); SODIUM 139 mmol/L (136-145); TOTAL IRON BINDING CAPACITY 305 ug/dl (250-450); TOTAL PROTEIN 7.2 gm/dL (6.4-8.2); TRIGLYCERIDES 133 mg/dl (<150)
[2022-01-04 11:01] LABS: BASOPHILS 1 % (0-1); PLATELET SUFFICIENCY HIGH (NORMAL); TARGET CELLS FEW; TOTAL CELLS COUNTED 100 #CELLS
[2022-01-04 11:02] LABS: MICROCYTOSIS MODERATE; OVALOCYTES FEW; POLYCHROMASIA SLIGHT; ROULEAUX SLIGHT; SCHISTOCYTES FEW
[2022-01-04 13:22] LABS: FERRITIN 3.6 ng/mL (22.0-322.0); VITAMIN D, 25-HYDROXY 24.8 ng/mL (30-100)
== END | disposition home or self-care (01) ==
LOC: LAB 10:10
PROVIDERS: ATTEND Family Medicine
DX: E78.5 Hyperlipidemia, unspecified (principal); R74.8 Abnormal levels of other serum enzymes; R79.89 Other specified abnormal findings of blood chemistry; R53.83 Other fatigue; E55.9 Vitamin D deficiency, unspecified

== ENCOUNTER → 2022-01-17 | Outpatient (CLI) | payer BC | END | disposition home or self-care (01) | LOC: LAB 12:08 | DX: K51.00 Ulcerative (chronic) pancolitis without complications (principal) ==

== ENCOUNTER → 2022-03-16 | Outpatient (CLI) | payer BC | END | disposition home or self-care (01) | LOC: LAB 03-15 12:01 | PROVIDERS: ATTEND Internal Medicine Gastroenterology | DX: K51.011 Ulcerative (chronic) pancolitis with rectal bleeding (principal) ==

== ENCOUNTER → 2022-03-21 | Outpatient (CLI) | payer BC | END | disposition home or self-care (01) | LOC: LAB 01:20 | PROVIDERS: ATTEND Internal Medicine Gastroenterology | DX: K51.019 Ulcerative (chronic) pancolitis with unspecified complications (principal) ==

== ENCOUNTER → 2022-04-17 | Outpatient (CLI) | payer BC | END | disposition home or self-care (01) | LOC: LAB 11:42 | PROVIDERS: ATTEND Internal Medicine Gastroenterology | DX: K51.019 Ulcerative (chronic) pancolitis with unspecified complications (principal) ==